=== PATIENT | female | born 2000 | race Caucasian/White ===

== ENCOUNTER 2022-02-16 08:39 | Emergency (ER) | payer BC, OTHER, SELFPAY ==
--- NOTE | 2022-02-16 08:56 | PC.NURSE ---
Arcelia @ [facility] notified @ [phone]
[2022-02-16 08:57] VITALS: BP 120/77; PULSE 107; RESP 22; TEMP 37.4; O2SAT 97
--- NOTE | 2022-02-16 08:57 | PC.NURSE ---
VM left with Call for Help @ [phone]
[2022-02-16 09:06] VITALS: BP 120/77; PULSE 107; RESP 22; TEMP 37.4; O2SAT 97
--- NOTE | 2022-02-16 09:07 | PC.NURSE ---
MALAIKA Hurley at bedside.
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
--- NOTE | 2022-02-16 09:28 | PC.NURSE ---
Jarett in dept at this time
--- NOTE | 2022-02-16 11:16 | PC.NURSE ---
Patient report received from KHADIJAH De Leon. All questions answered and care of patient assumed. REMIGIO LUCIO at bedside.
[2022-02-16 14:47] LABS: Basophils Percent Auto 0.1 % (0.2-1.2); Eosinophils Percent Auto 0.4 % (0-4.4); Hematocrit 42.6 % (37.0-47.0); Hemoglobin 13.8 g/dL (12.0-15.0); Immature Granulocyte Absolute 0.02 K/mm3 (0.00-0.031); Immature Granulocyte Percent A 0.3 % (0-0.5); Lymphocytes Absolute Auto 1.88 K/mm3 (0.9-3.2); Mean Corpuscular HGB Conc 32.4 g/dl (32-36); Mean Corpuscular Hemoglobin 28.7 pg (26-34); Mean Corpuscular Volume 88.6 fl (80-100); Mean Platelet Volume 9.8 fl (7.4-10.4); Monocytes Absolute Auto 0.5 K/mm3 (0.1-0.6); Monocytes Percent Auto 6.6 % (2.6-8.5); Neutrophils Absolute Auto 5.4 K/mm3 (1.3-6.7); Neutrophils Percent Auto 68.6 % (45.5-73.1); Platelet Count Result 220 k/mm3 (150-375); Red Blood Count 4.81 M/mm3 (4.2-5.4); White Blood Count 7.8 K/mm3 (4.5-10.0)
[2022-02-16 14:55] LABS: Alanine Aminotransferase 25 U/L (6-35); Albumin Level 4.2 g/dL (3.5-5.1); Alkaline Phosphatase 61 U/L (38-126); Anion Gap 9 mmol/L (8-16); Aspartate Amino Transferase 31 U/L (14-36); Bilirubin,Total 0.3 mg/dL (0.2-1.3); Blood Urea Nitrogen 8 mg/dL (7-17); Calcium 8.9 mg/dL (8.4-10.2); Carbon Dioxide 24 mmol/L (22-30); Chloride 107 mmol/L (98-107); Estimated CRCL calculation 95 ml/min; Estimated Glomerular Filt Rate > 60; Glucose 115 mg/dL (65-110); Potassium 3.8 mmol/L (3.4-5.0); Sodium 140 mmol/L (137-145)
[2022-02-16] MEDS: levonorgestreL 1.5 MG TABLET PO (15:07)
[2022-02-16] MEDS: cefTRIAXone 1 GM VIAL 0.5 GM IM (15:07)
[2022-02-16] MEDS: DOXYCYCLINE HYCLATE 100 MG TABLET PO (15:07)
[2022-02-16] MEDS: metroNIDAZOLE 250 MG TABLET 500 MG PO (15:07)
[2022-02-16] MEDS: TETANUS,DIPHTHERIA,AC PERTUSSIS ADULT (0.5 ML) BOOSTRIX IM (15:08)
[2022-02-16 15:12] LABS: Beta HCG Quantitative < 2.39 mIU/ML
[2022-02-16 15:44] VITALS: BP 105/66; PULSE 82; RESP 18; O2SAT 100
[2022-02-16 15:46] LABS: HIV 1/2 Ab P24 Ag Result Negative (Negative)
[2022-02-16 17:06] LABS: Rapid Plasma Reagin Non-Reactive (NonReactive)
== END 2022-02-16 15:45 | disposition home or self-care (01) ==
PROVIDERS: Physician Assistant; Emergency Provider Emergency Medicine
DX: Z04.41 Encounter for examination and observation following alleged adult rape (principal); Z23 Encounter for immunization
CPT/HCPCS: 36415; 80053; 84702; 85025; 86592; 86703; 87070; 87491; 87591; 87808; 90471; 90715; 96372; 99285; A9270; G0432; J0696

== ENCOUNTER 2022-03-15 15:53 | Outpatient (CLI) | payer BC, OTHER, SELFPAY ==
[2022-03-15 16:59] LABS: Hepatitis B Surface Antigen Negative (Negative)
[2022-03-15 17:05] LABS: HAV RESULT Negative (Negative); Hepatitis B Core IgM Result Negative (Negative)
[2022-03-15 17:06] LABS: Rapid Plasma Reagin Non-Reactive (NonReactive)
[2022-03-15 17:08] LABS: HIV 1/2 Ab P24 Ag Result Negative (Negative)
[2022-03-15 17:50] LABS: Hepatitis C Virus Antibody Negative (Negative)
== END 2022-03-15 15:54 | disposition home or self-care (01) ==
LOC: ANHLAB 15:55
PROVIDERS: Visit Provider Obstetrics & Gynecology
DX: T74.21XA Adult sexual abuse, confirmed, initial encounter (principal)
CPT/HCPCS: 36415; 80074; 86592; 86695; 86696; 86703; 87491; 87591; G0432